=== PATIENT | male | born 1955 | race Caucasian/White ===

== ENCOUNTER 2020-09-30 06:15 | Outpatient (REF) | payer MEDICARE, SELFPAY ==
[2020-09-30 07:45] LABS: MANUAL DIFF FLAG NO
[2020-09-30 08:07] LABS: Basophils Percent Auto 0.3 % (0-2); Eosinophils Absolute Auto 0.1 X10*3/uL (0.0-0.4); Eosinophils Percent Auto 1.2 % (0-4); Hematocrit 43.5 % (42-52); Hemoglobin 14.5 g/dl (14.0-18.0); Imm Gran Abs Auto 0.02 X10*3/uL (0.00-0.03); Imm Gran Pct Auto 0.3 % (0.0-0.4); Lymphocytes Absolute Auto 1.4 X10*3/uL (1.2-4.9); Mean Corpuscular HGB Conc 33.3 g/dl (31.0-36.0); Mean Corpuscular Hemoglobin 32.2 pg (27.0-33.0); Mean Corpuscular Volume 96.5 fL (80-98); Mean Platelet Volume 10.1 fL (9.4-12.4); Monocytes Absolute Auto 0.6 X10*3/uL (0.1-1.2); Monocytes Percent Auto 8.1 % (2-11); Neutrophils Absolute Auto 5.4 X10*3/uL (2.0-8.3); Neutrophils Percent Auto 71.1 % (45-73); Platelet Count 149 X10*3/uL (160-400); Red Blood Count 4.51 X10*6/uL (4.60-5.80); Red Cell Distribution Width 12.3 % (11.0-16.0); White Blood Count 7.6 X10*3/uL (4.8-10.8)
[2020-09-30 08:13] LABS: Alanine Aminotransferase 28 U/L (0-40); Albumin Level 4.3 g/dL (3.5-5.0); Alkaline Phosphatase 67 U/L (39-117); Anion Gap 13 (12-20); Aspartate Amino Transferase 26 U/L (5-37); Bilirubin Total 1.3 mg/dL (0.0-1.0); Blood Urea Nitrogen 18 mg/dL (9-16); Calcium 8.7 mg/dL (8.4-10.2); Carbon Dioxide 26 mmol/L (22-29); Chloride 102 mmol/L (96-108); Cholesterol 239 mg/dL; Estimated Glomerular Filt Rate > 60; Glucose Fasting 99 mg/dL (60-99); HDL Cholesterol 56 mg/dL; LDL Cholesterol Calculated 143 mg/dl; Potassium 4.3 mmol/l (3.3-5.1); Sodium 137 mmol/L (135-145); Total Protein 6.9 g/dL (6.5-8.0); Triglycerides 204 mg/dL
[2020-09-30 08:13] LABS: Glucose Urine UA NEG (NEG); Leukocyte Esterase Urine NEG (NEG); Nitrite Urine NEG (NEG); PH 6.5 (5.0-8.0); Urine Blood NEG (NEG); Urine Ketones NEG (NEG); Urine Protein NEG (NEG-TRACE)
[2020-09-30 08:16] LABS: Appearance Urine CLEAR; Color Urine YELLOW
[2020-09-30 08:54] LABS: Prostate Specific Antigen Scr 0.32 ng/mL (<0.05-4.0)
== END 2020-09-30 06:16 | disposition home or self-care (01) ==
LOC: HO.LAB 06:15
PROVIDERS: Visit Provider Internal Medicine
DX: E78.00 Pure hypercholesterolemia, unspecified (principal); Z12.5 Encounter for screening for malignant neoplasm of prostate
CPT/HCPCS: 36415; 80053; 80061; 81003; 84153; 85025

== ENCOUNTER 2021-02-28 10:09 | Outpatient (REF) | payer MEDICARE, SELFPAY ==
--- NOTE | ~2021-02-28 | MR_ITS ---
EXAMINATION: MR ABDOMEN WITHOUT AND WITH CONTRAST CLINICAL INFORMATION: Follow-up pancreatic cyst COMPARISON: Previous MRIs most recent October [address] of the abdomen and pelvis January 2019 TECHNIQUE: MR abdomen was performed without and with use of 10 mL intravenous Gadavist gadolinium contrast. Postcontrast images are performed in multiphase dynamic sequences. Imaging was performed in 3 planes. 3-D MRCP sequences were also performed. FINDINGS: LUNG BASES: The visualized lung bases are unremarkable. LIVER, GALLBLADDER, AND BILIARY TREE: The liver is low in attenuation suggestive of fatty infiltration. The liver is normal in size and contour. There are multiple liver cysts. The largest cyst is an exophytic cyst to the lateral segment of the left lobe of the liver and measures 3 cm. The gallbladder is normal-appearing. There is no intra or extrahepatic biliary duct dilatation. PANCREAS: There are small cysts seen in the pancreas. The largest measures 6 x 9 mm in the uncinate process of the head of the pancreas for example image 36 postcontrast. This does not appear appreciably changed. There are several smaller cysts that are unchanged as well. The main pancreatic duct is normal. SPLEEN: Normal. ADRENAL GLANDS: Normal. KIDNEYS AND URETERS: There are several left renal cysts. The largest cyst measures 13 cm exophytic to the lower pole of the left kidney. GASTROINTESTINAL TRACT: There is diverticulosis of the colon. No bowel obstruction. No ascites or fluid collection. ABDOMINAL WALL: There is a small umbilical hernia containing fat. LYMPH NODES: No lymphadenopathy. VASCULAR: Unremarkable. OSSEOUS STRUCTURES: Marrow signal normal. There is degenerative disc disease. MR/MR abdomen wo/w con IMPRESSION: Stable liver, pancreas and left renal cysts. Fatty infiltration of the liver. Diverticulosis.
[2021-02-28 10:55] LABS: Blood Urea Nitrogen 15 mg/dL (9-16); Estimated Glomerular Filt Rate > 60
[2021-03-01 12:02] LABS: Carbohydrate Antigen 19-9 17 U/mL (<34)
== END 2021-02-28 10:10 | disposition home or self-care (01) ==
LOC: HO.MRI 10:09
PROVIDERS: Visit Provider Internal Medicine
DX: K86.2 Cyst of pancreas (principal)
CPT/HCPCS: 36415; 74183; 82565; 84520; 86301; A9585

== ENCOUNTER 2021-09-26 05:58 | Outpatient (REF) | payer MEDICARE, SELFPAY ==
[2021-09-26 06:16] LABS: MANUAL DIFF FLAG NO
[2021-09-26 07:16] LABS: Basophils Percent Auto 0.4 % (0-2); Eosinophils Absolute Auto 0.2 X10*3/uL (0.0-0.4); Eosinophils Percent Auto 2.8 % (0-4); Hematocrit 42.6 % (42.0-52.0); Hemoglobin 14.1 g/dl (14.0-18.0); Imm Gran Abs Auto 0.01 X10*3/uL (0.00-0.03); Imm Gran Pct Auto 0.2 % (0.0-0.4); Lymphocytes Absolute Auto 1.7 X10*3/uL (1.2-4.9); Lymphocytes Percent Auto 31.5 % (20-40); Mean Corpuscular HGB Conc 33.1 g/dl (31.0-36.0); Mean Corpuscular Hemoglobin 31.8 pg (27.0-33.0); Mean Corpuscular Volume 95.9 fL (80.0-98.0); Mean Platelet Volume 9.9 fL (9.4-12.4); Monocytes Absolute Auto 0.6 X10*3/uL (0.1-1.2); Monocytes Percent Auto 10.5 % (2-11); Neutrophils Percent Auto 54.6 % (45-73); Platelet Count 149 X10*3/uL (160-400); Red Blood Count 4.44 X10*6/uL (4.60-5.80); Red Cell Distribution Width 12.2 % (11.0-16.0); White Blood Count 5.4 X10*3/uL (4.8-10.8)
[2021-09-26 07:47] LABS: Alanine Aminotransferase 31 U/L (0-40); Albumin Level 4.1 g/dL (3.5-5.0); Alkaline Phosphatase 60 U/L (39-117); Anion Gap 9 (12-20); Aspartate Amino Transferase 25 U/L (5-37); Bilirubin Total 0.8 mg/dL (0.0-1.0); Blood Urea Nitrogen 19 mg/dL (9-16); Carbon Dioxide 29 mmol/L (22-29); Chloride 106 mmol/L (96-108); Estimated Glomerular Filt Rate > 60; Glucose Fasting 101 mg/dL (60-99); Potassium 4.7 mmol/L (3.3-5.1); Sodium 139 mmol/L (135-145); Total Protein 6.4 g/dL (6.5-8.0)
[2021-09-26 08:07] LABS: Prostate Specific Antigen 0.35 ng/mL (<0.05-4.0)
== END 2021-09-26 05:59 | disposition home or self-care (01) ==
LOC: HO.LAB 05:58
PROVIDERS: PCP Internal Medicine; Visit Provider Internal Medicine
DX: Z12.5 Encounter for screening for malignant neoplasm of prostate (principal); E78.00 Pure hypercholesterolemia, unspecified; J30.1 Allergic rhinitis due to pollen; Z80.42 Family history of malignant neoplasm of prostate
CPT/HCPCS: 36415; 80053; 84153; 85025

== ENCOUNTER 2022-03-05 08:26 | Outpatient (REF) | payer MEDICARE, SELFPAY ==
[2022-03-05 09:21] LABS: Blood Urea Nitrogen 17 mg/dL (9-16); Estimated Glomerular Filt Rate > 60
[2022-03-07 18:22] LABS: Carbohydrate Antigen 19-9 10 U/mL (<34)
== END 2022-03-05 08:27 | disposition home or self-care (01) ==
LOC: HO.LAB 08:26
PROVIDERS: PCP Internal Medicine; Visit Provider Internal Medicine
DX: K86.2 Cyst of pancreas (principal)
CPT/HCPCS: 36415; 82565; 84520; 86301

== ENCOUNTER 2022-03-12 08:08 | Outpatient (REF) | payer MEDICARE, SELFPAY ==
--- NOTE | ~2022-03-12 | MR_ITS ---
EXAMINATION: MR ABDOMEN WITHOUT AND WITH CONTRAST CLINICAL INFORMATION: Pancreatic cyst COMPARISON: 02/28/2021 TECHNIQUE: MR abdomen was performed without and with use of 10 mL intravenous Gadavist gadolinium contrast. Postcontrast images are performed in multiphase dynamic sequences. Imaging was performed in 3 planes. FINDINGS: LUNG BASES: The visualized lung bases are unremarkable. LIVER, GALLBLADDER, AND BILIARY TREE: The liver is normal in size, smooth in contour, with signal dropout on out of phase imaging. There is no biliary ductal dilatation. There are multiple T2 bright lesions in the liver. These do not show enhancement on postcontrast imaging, consistent with cysts.. The gallbladder is unremarkable with no evidence of gallbladder wall thickening, or obvious pericholecystic inflammatory changes. PANCREAS: Multiple pancreatic cysts are again noted. Additional smaller cysts at the pancreatic neck and body are also unchanged. No abnormal enhancement. No pancreatic ductal dilatation. SPLEEN: Normal. ADRENAL GLANDS: Normal. KIDNEYS AND URETERS: The kidneys are normal in size, shape, and enhance symmetrically. No hydronephrosis. No perinephric stranding. Redemonstration of a prominent exophytic cyst at the lower pole of the left kidney measuring 13 cm. This appears simple and is unchanged. Additional left simple renal cysts are also unchanged. No follow-up imaging recommended. GASTROINTESTINAL TRACT: No bowel obstruction. No ascites or fluid collection. ABDOMINAL WALL: No significant hernia is appreciated. LYMPH NODES: No lymphadenopathy. VASCULAR: Unremarkable. OSSEOUS STRUCTURES: Marrow signal normal. MR/MR abdomen wo/w con IMPRESSION: No significant change in appearance of multiple small pancreatic cysts. Cysts of the liver and left kidney are also without change. Hepatic steatosis.
== END 2022-03-12 08:09 | disposition home or self-care (01) ==
LOC: HO.MRI 08:08
PROVIDERS: Visit Provider Internal Medicine
DX: K86.2 Cyst of pancreas (principal)
CPT/HCPCS: 74183; A9585

== ENCOUNTER 2022-04-06 07:08 | Day surgery (SDC) | payer MEDICARE, SELFPAY ==
[2022-03-31 15:27] VITALS: BMI 29.7
--- NOTE | 2022-04-03 12:37 | P.CONAN_ITS ---
Documented by User: Génesis Mandel NP 04/03/22 12:38 HPI - Anesthesia Eval Consult details Narrative: 66yo M for Colonoscopy [facility] Past Medical History Medical History Diverticulitis Surgical History Surgical History H/O colonoscopy Social History Social History (Updated 03/31/22 @ 15:25 by Faith Alexander RN) Patient Tobacco Use Status: Never used Tobacco Tobacco use type: Cigarette Use of substances other than those prescribed or required for medical reasons: No Are you DNR?: No Advance Directives: No Advance Directives Information Provided: Yes Meds Allergies Allergy/AdvReac Type Severity Reaction Status Date / Time No Known Allergies Allergy Verified 04/06/22 08:09 Home Medications Medication Instructions Recorded Confirmed Last Taken Type fluticasone propionate 50 1 spray INTRANASAL DAILY 03/31/22 03/31/22 Unknown History mcg/actuation nasal spray,suspension (Flonase Allergy Relief) Exam Exam Date and Time: April 03, 2022 1237 Height,Weight and Vital Signs: Height 6 ft Weight 99.337 kg Assessment and Plan Assessment Anesthesia Assessment: Chart Reviewed Documented by User: Marc Mon MD 04/06/22 09:38 [facility] Past Medical History Medical History Diverticulitis Functional capacity: independent ambulation Family History Family history of problems with anesthesia: No Surgical History Surgical History H/O colonoscopy History of Problems with Anesthesia: No Social History Social History (Updated 03/31/22 @ 15:25 by Faith Alexander RN) Patient Tobacco Use Status: Never used Tobacco Tobacco use type: Cigarette Use of substances other than those prescribed or required for medical reasons: No Are you DNR?: No Advance Directives: No Advance Directives Information Provided: Yes Meds Allergies Allergy/AdvReac Type Severity Reaction Status Date / Time No Known Allergies Allergy Verified 04/06/22 08:09 Home Medications Medication Instructions Recorded Confirmed Last Taken Type fluticasone propionate 50 1 spray INTRANASAL DAILY 03/31/22 03/31/22 Unknown History mcg/actuation nasal spray,suspension (Flonase Allergy Relief) Exam Airway Mallampati Class: II TM Dist: >3cm Neck ROM: Full Loose/Missing/Broken Teeth: Yes (Chipped teeth ) Heart: S1, S2 Lungs: b/l breath sounds Assessment and Plan Assessment Anesthesia Assessment: Anesthesia Plan Discussed Final Anesthetic Review Family History of Problems with Anesthesia: No History of Problems with Anesthesia: No NPO: Yes ASA Class: II Final Preanesthetic Review: Meds/Allgs Chart Reviewed, Consent Obtained/Reviewed and Anes Risks/Benef Reviewed Patient Risk: Intermediate Procedure Risk: Intermediate Anesthetic Plan Anesthetic Plan: MAC: Disposition: Standard PACU
[2022-04-06 07:41] VITALS: BP 166/105; PULSE 86; RESP 15; TEMP 36.2; O2SAT 97
[2022-04-06] MEDS: Lactated Ringers 1,000 ML 100 ML IVCONT (07:57)
[2022-04-06 09:26] VITALS: BP 115/73; PULSE 74; RESP 16; TEMP 36.1; O2SAT 97
--- NOTE | 2022-04-06 09:27 | P.BOP_ITS ---
Brief Operative Note Date of Service: 04/06/22 Pre-op diagnosis: Screening Post-op diagnosis: other (Diverticulosis) Procedure: Colonoscopy to the cecum and TI Surgeon: Derick Prakash Anesthesia: MAC Was an Quality Control Assistant used for this Procedure?: No Estimated blood loss (mL): 0 Pathology: none sent Condition: stable Disposition: PACU
[2022-04-06 09:41] VITALS: BP 120/76; PULSE 70; RESP 16; TEMP 36.1; O2SAT 96
--- NOTE | 2022-04-06 10:19 | OP_ITS ---
SURGEON: Derick Prakash MD INDICATIONS: The patient presents for evaluation of colorectal cancer screening and personal history of tubular adenoma of the colon. Full consent was obtained from him for this, including risks of bleeding and perforation. PREOPERATIVE DIAGNOSIS: POSTOPERATIVE DIAGNOSIS: PROCEDURE PERFORMED: Colonoscopy to cecum and terminal ileum. ESTIMATED BLOOD LOSS: COMPLICATIONS: ANESTHESIA: Monitored anesthesia care. ASSISTANTS: SPECIMENS: PREOPERATIVE DIAGNOSES: Colorectal cancer screening and personal history of tubular adenoma of the colon. POSTOPERATIVE DIAGNOSES: Colorectal cancer screening and personal history of tubular adenoma of the colon, diverticulosis and internal hemorrhoids. DESCRIPTION OF PROCEDURE: The patient was placed in the left lateral decubitus position. The digital rectal exam revealed no abnormalities. The Olympus video pediatric colonoscope was entered into the rectum and advanced easily to the cecum. Once in the cecum, I did identify normal-appearing cecal pouch with appendiceal orifice and a normal-appearing ileocecal valve. The terminal ileum was cannulated and appeared normal. The scope was withdrawn back into the colon. The entire cecum and ileocecal valve appeared normal. The scope was then slowly withdrawn assessing all mucosal surfaces carefully. Preparation was excellent. I did not visualize any sign of polyps, colitis, nor angiodysplasia. There was a mild amount of sigmoid diverticulosis. In the rectum, scope was retroflexed visualizing small internal hemorrhoids, but no other pathology. The rectal mucosa appeared normal. The scope was straightened and withdrawn from the patient. He tolerated the procedure well and was returned to the recovery area in stable condition. IMPRESSION: 1. Mild sigmoid diverticulosis. 2. Small internal hemorrhoids. PLAN: I would recommend a repeat colonoscopy in 5 years. He will see me in 2 years in the office for a followup MRI of his pancreatic cyst. His recent MRI was stable in that regard. MD UMA Bautista/IVORY / [id number] LONNIE
== END 2022-04-06 10:29 | disposition home or self-care (01) ==
PROVIDERS: PCP Internal Medicine; Visit Provider Internal Medicine
PROC: 0DJD8ZZ Inspection of Lower Intestinal Tract, Via Natural or Artificial Opening Endoscopic (ICD-10-PCS; CPT 45378; principal; 2022-04-06 08:20)
DX: Z12.11 Encounter for screening for malignant neoplasm of colon (principal); Z86.010 Personal history of colon polyps; K57.30 Diverticulosis of large intestine without perforation or abscess without bleeding; K64.8 Other hemorrhoids; K86.2 Cyst of pancreas
CPT/HCPCS: G0105

== ENCOUNTER 2022-10-05 06:01 | Outpatient (REF) | payer MEDICARE, SELFPAY ==
[2022-10-05 06:06] LABS: MANUAL DIFF FLAG NO
[2022-10-05 07:45] LABS: Basophils Percent Auto 0.5 % (0-2); Eosinophils Absolute Auto 0.1 X10*3/uL (0.0-0.4); Eosinophils Percent Auto 1.9 % (0-4); Hematocrit 42.4 % (42.0-52.0); Hemoglobin 14.1 g/dl (14.0-18.0); Imm Gran Abs Auto 0.01 X10*3/uL (0.00-0.03); Imm Gran Pct Auto 0.2 % (0.0-0.4); Lymphocytes Absolute Auto 1.7 X10*3/uL (1.2-4.9); Lymphocytes Percent Auto 29.6 % (20-40); Mean Corpuscular HGB Conc 33.3 g/dl (31.0-36.0); Mean Corpuscular Hemoglobin 31.4 pg (27.0-33.0); Mean Corpuscular Volume 94.4 fL (80.0-98.0); Mean Platelet Volume 9.7 fL (9.4-12.4); Monocytes Absolute Auto 0.6 X10*3/uL (0.1-1.2); Monocytes Percent Auto 9.6 % (2-11); Neutrophils Absolute Auto 3.4 x10*3/uL (2.0-8.3); Neutrophils Percent Auto 58.2 % (45-73); Platelet Count 142 X10*3/uL (160-400); Red Blood Count 4.49 X10*6/uL (4.60-5.80); Red Cell Distribution Width 12.6 % (11.0-16.0); White Blood Count 5.8 X10*3/uL (4.8-10.8)
[2022-10-05 07:59] LABS: Alanine Aminotransferase 26 U/L (0-40); Albumin Level 3.9 g/dL (3.5-5.0); Alkaline Phosphatase 63 U/L (39-117); Anion Gap 14 (12-20); Aspartate Amino Transferase 21 U/L (5-37); Bilirubin Total 0.7 mg/dL (0.0-1.0); Blood Urea Nitrogen 17 mg/dL (9-16); Calcium 8.7 mg/dL (8.4-10.2); Carbon Dioxide 26 mmol/L (22-29); Chloride 107 mmol/L (96-108); Cholesterol 253 mg/dL; Estimated Glomerular Filt Rate > 60; Glucose Random 99 mg/dL (60-115); HDL Cholesterol 48 mg/dL; LDL Cholesterol Calculated 154 mg/dl; Potassium 4.8 mmol/L (3.3-5.1); Sodium 142 mmol/L (135-145); Total Protein 6.4 g/dL (6.5-8.0); Triglycerides 255 mg/dL
[2022-10-05 08:21] LABS: Prostate Specific Antigen 0.41 ng/mL (<0.05-4.0)
== END 2022-10-05 06:02 | disposition home or self-care (01) ==
LOC: HO.LAB 06:01
PROVIDERS: PCP Internal Medicine; Visit Provider Internal Medicine
DX: Z00.00 Encounter for general adult medical examination without abnormal findings (principal); Z12.5 Encounter for screening for malignant neoplasm of prostate; E78.00 Pure hypercholesterolemia, unspecified
CPT/HCPCS: 36415; 80053; 80061; 84153; 85025

== ENCOUNTER 2023-01-29 06:06 | Outpatient (REF) | payer MEDICARE, SELFPAY ==
[2023-01-29 08:11] LABS: Cholesterol 199 mg/dL; HDL Cholesterol 53 mg/dL; LDL Cholesterol Calculated 113 mg/dl; Triglycerides 167 mg/dL
== END 2023-01-29 06:07 | disposition home or self-care (01) ==
LOC: HO.LAB 06:06
PROVIDERS: PCP Internal Medicine; Visit Provider Internal Medicine
DX: E78.00 Pure hypercholesterolemia, unspecified (principal)
CPT/HCPCS: 36415; 80061

== ENCOUNTER 2023-09-24 06:05 | Outpatient (REF) | payer MEDICARE, SELFPAY ==
[2023-09-24 06:19] LABS: MANUAL DIFF FLAG NO
[2023-09-24 07:00] LABS: Basophils Percent Auto 0.5 % (0-2); Eosinophils Absolute Auto 0.1 X10*3/uL (0.0-0.4); Eosinophils Percent Auto 1.9 % (0-4); Hematocrit 43.7 % (42.0-52.0); Hemoglobin 14.6 g/dl (14.0-18.0); Imm Gran Abs Auto 0.03 X10*3/uL (0.00-0.03); Imm Gran Pct Auto 0.5 % (0.0-0.4); Lymphocytes Absolute Auto 1.6 X10*3/uL (1.2-4.9); Lymphocytes Percent Auto 26.7 % (20-40); Mean Corpuscular HGB Conc 33.4 g/dl (31.0-36.0); Mean Corpuscular Hemoglobin 31.8 pg (27.0-33.0); Mean Corpuscular Volume 95.2 fL (80.0-98.0); Mean Platelet Volume 9.8 fL (9.4-12.4); Monocytes Absolute Auto 0.6 X10*3/uL (0.1-1.2); Monocytes Percent Auto 10.2 % (2-11); Neutrophils Absolute Auto 3.5 x10*3/uL (2.0-8.3); Neutrophils Percent Auto 60.2 % (45-73); Platelet Count 148 X10*3/uL (160-400); Red Blood Count 4.59 X10*6/uL (4.60-5.80); Red Cell Distribution Width 12.3 % (11.0-16.0); White Blood Count 5.8 X10*3/uL (4.8-10.8)
[2023-09-24 07:36] LABS: Alanine Aminotransferase 22 U/L (0-40); Albumin Level 4.1 g/dL (3.5-5.0); Alkaline Phosphatase 61 U/L (39-117); Anion Gap 11 (12-20); Aspartate Amino Transferase 21 U/L (5-37); Bilirubin Total 0.9 mg/dL (0.0-1.0); Blood Urea Nitrogen 16 mg/dL (9-16); Calcium 9.3 mg/dL (8.4-10.2); Carbon Dioxide 28 mmol/L (22-29); Chloride 109 mmol/L (96-108); Cholesterol 148 mg/dL (<200); Estimated Glomerular Filt Rate > 60; Glucose Fasting 103 mg/dL (60-99); HDL Cholesterol 49 mg/dL (>40); LDL Cholesterol Calculated 83 mg/dL (<100); Potassium 5.6 mmol/L (3.3-5.1); Sodium 142 mmol/L (135-145); Total Protein 6.8 g/dL (6.5-8.0); Triglycerides 83 mg/dL (<150)
[2023-09-24 07:50] LABS: Prostate Specific Antigen 0.35 ng/mL (<0.05-4.0)
[2023-09-24 10:47] LABS: Creatinine Urine 151.84 mg/dL; Microalbum/Creatinine Ratio Ur 9.8 ug/mg cr (<30)
== END 2023-09-24 06:06 | disposition home or self-care (01) ==
LOC: HO.LAB 06:05
PROVIDERS: PCP Internal Medicine; Visit Provider Internal Medicine
DX: Z12.5 Encounter for screening for malignant neoplasm of prostate (principal); E78.00 Pure hypercholesterolemia, unspecified; R35.1 Nocturia
CPT/HCPCS: 36415; 80053; 80061; 82043; 82570; 84153; 85025

== ENCOUNTER 2024-05-23 10:29 | Outpatient (AMB) | payer MEDICARE, SELFPAY ==
--- NOTE | 2024-05-23 10:34 | MHC.OFFVIS ---
Vital Signs 05/23/24 10:39 Height 6 ft Weight 216 lb BMI 29.3 Intake Visit Reasons: suspicious cyst on back, right side Intake Note: This patient presents for an assessment for inflamed cyst on the back, right. Patient c/o; reports on one round of cephalexin 500 mg, inflamed cyst right back. Freelance Patternmaker Required: No Accompanied by: Self / Same As Patient Allergies No Known Allergies Allergy (Verified 05/23/24 10:42) Medication List - Last Reconciled 05/23/24 by Jamal Breumen MD cephalexin 500 mg PO QID fluticasone propionate 50 mcg/actuation (Flonase Allergy Relief) 1 spray intranasal DAILY ibuprofen 800 mg PO Q8H PRN 30 days HPI Comments Details: 68-year-old male presenting with complaints of painful cyst of the right back. Over the past week he noted increasing the size and pain associated with the cyst. He now has large area of redness surrounding the cyst. He was evaluated by Dr. Harmon and started on antibiotics. He presents today for possible incision and drainage. He denies any previous surgery at this location. He denies fever or chills. [facility] Medical History Diverticulitis Surgical History H/O colonoscopy Social History Patient Tobacco Use Status: Never used Tobacco Tobacco use type: Cigarette Review of Systems Const All systems reviewed & are unremarkable except as noted in HPI and below Physical Exam Vital Signs: BMI result Body Mass Index 29.3 Const General: cooperative and no acute distress Nutritional Appearance: well nourished Orientation/consciousness: patient oriented x3 Limitations: no limitations HEENT Head: Yes normocephalic and Yes atraumatic Ears: hearing grossly normal bilaterally Resp Effort & Inspection: normal respiratory effort, no audible wheezes, no cough and no respiratory distress Cardio Jugular venous distension: no JVD GI Inspection: Yes normal to inspection Back/Spine/Pelvis Other: 5 cm area of inflammation fluctuance involving the right upper back, tender to palpation. A small amount of purulence discharge is noted my central punctum. Findings are suggestive of an infected sebaceous cyst. Back/spine/pelvis image: 1. Site of infection right back Skin Other: Warm, dry, no rash Neuro General: patient oriented x3 Extrem General: Yes no clubbing, cyanosis or edema Office Procedures I&D Drain Details: Preoperative diagnosis: Infected sebaceous cyst right back Postoperative diagnosis: Same Procedure: Incision and drainage abscess Surgeon: Jamal Berumen MD Hearse Driver: Anesthesia: Lidocaine 1% with epinephrine Indications for procedure: 68-year-old male patient with an abscess of the posterior right shoulder Operative findings: Large abscess posterior right shoulder Specimen: Wound culture Estimated blood loss: Less than 2 mL Complications: None Procedure details: Patient was placed in a left lateral decubitus position. The site of surgery was confirmed by the patient in the posterior right shoulder. After assuring informed consent the skin was prepped with Betadine and draped in a sterile fashion. Local anesthesia was then infiltrated over the abscess. An incision was then made with an 11 blade and carried out through subcutaneous tissue into the abscess cavity. A large purulence collection was drained. Wound cultures were obtained as well. Wounds were then packed with half-inch Nu Gauze. Dry sterile dressings were then applied. The patient tolerated the procedure well and was discharged to home in stable condition. [id number] of Skin Abscess, simple All charges added?: Procedure code (CPT) selection complete Assessment & Plan Assessment & Plan (1) Epidermal inclusion cyst: Code(s): L72.0 - Epidermal cyst Category: Medical (2) Abscess: Code(s): L02.91 - Cutaneous abscess, unspecified Category: Medical Plan 68-year-old male patient presenting with an infected sebaceous cyst of the back. He underwent incision and drainage today with a large purulence collection. He was instructed on local wound care. He should continue the antibiotics as prescribed. He will follow-up in 1 week for wound check. Orders: Orders Routine Culture w Gram Stain Today L02.91 - Cutaneous abscess, unspecified, L72.0 - Epidermal cyst Coding Level of Care Code New Pt Level 4 (91596) Diagnoses Epidermal inclusion cyst L72.0 Abscess L02.91 CPT Codes I&D Drain - Drain 1: [id number]-Dmqgsexh of Skin Abscess, simple ([id number])
[2024-05-23 10:39] VITALS: BMI 29.3
== END 2024-05-23 11:00 | disposition home or self-care (01) ==
PROVIDERS: PCP Internal Medicine; Referring Provider Internal Medicine; Visit Provider Surgery
DX: L72.0 Epidermal cyst (principal); L02.212 Cutaneous abscess of back [any part, except buttock and flank]
CPT/HCPCS: 10060; 99204

== ENCOUNTER 2024-05-23 10:29 | Outpatient (REF) | payer MEDICARE, SELFPAY | END 2024-05-23 10:30 | disposition home or self-care (01) | LOC: HO.LNP 10:29 | PROVIDERS: PCP Internal Medicine; Referring Provider Internal Medicine; Visit Provider Surgery | DX: L72.0 Epidermal cyst (principal); L02.91 Cutaneous abscess, unspecified | CPT/HCPCS: 10060; 87070; 87205; 99202 ==

== ENCOUNTER 2024-05-30 10:14 | Outpatient (AMB) | payer MEDICARE, SELFPAY ==
--- NOTE | 2024-05-30 10:16 | A.OFFVIS_ITS ---
Vital Signs 3 05/30/24 10:21 Height 6 ft Weight 217 lb BMI 29.4 BP 174/95 H Blood Pressure Location Lt brachial Position Sitting Pulse 81 Intake Visit Reasons: s/p cyst on back right side- off proc Intake Note: Patient is seen in office for post op assessment post excision of back cyst. Pt c/o: some minimal redness and discharge in the area Development And Housing Director Required: No Accompanied by: Self / Same As Patient Allergies No Known Allergies Allergy (Verified 05/30/24 10:22) HPI Comments Details: 68-year-old male patient returning 1 week following incision and drainage of an abscess of the right back. He tolerated the procedure well and still has some small amount of discharge. He denies any fever or chills. PFSH Medical History Diverticulitis Surgical History H/O colonoscopy Social History Patient Tobacco Use Status: Never used Tobacco Tobacco use type: Cigarette Physical Exam Vital Signs: Last Vital Signs Pulse 81 05/30/24 10:21 BP 174/95 H 05/30/24 10:21 BMI result Body Mass Index 29.4 Const General: comfortable Nutritional Appearance: well nourished Orientation/consciousness: patient oriented x3 Back/Spine/Pelvis Other: Incision and drainage site is open with no residual abscess noted. Dry sterile dressings applied. Back/spine/pelvis image: 2 1. Incision and drainage site Neuro General: patient oriented x3 Assessment & Plan Assessment & Plan (1) Epidermal inclusion cyst: Code(s): L72.0 - Epidermal cyst Category: Medical (2) Abscess: Code(s): L02.91 - Cutaneous abscess, unspecified Category: Medical Plan Patient returns 1 week following incision and drainage of an abscess of the right. He tolerated the procedure well the wounds are slowly healing. He should continue to apply dry sterile dressing to the wound. He should return should a palpable cyst redevelop for possible excision. Coding Level of Care Code Global (93716) Diagnoses Epidermal inclusion cyst L72.0 Abscess L02.91
[2024-05-30 10:21] VITALS: BP 174/95; PULSE 81; BMI 29.4
== END 2024-05-30 10:24 | disposition home or self-care (01) ==
PROVIDERS: PCP Internal Medicine; Visit Provider Surgery
DX: L72.0 Epidermal cyst (principal); L02.91 Cutaneous abscess, unspecified
CPT/HCPCS: 99024

== ENCOUNTER → 2024-05-30 10:14 | Outpatient (BNVA) | payer MEDICARE, SELFPAY | PROVIDERS: PCP Internal Medicine; Visit Provider Surgery | DX: Z48.817 Encounter for surgical aftercare following surgery on the skin and subcutaneous tissue (principal); Z87.2 Personal history of diseases of the skin and subcutaneous tissue | CPT/HCPCS: 99212 ==

== ENCOUNTER 2024-09-26 05:59 | Outpatient (REF) | payer MEDICARE, SELFPAY ==
[2024-09-26 06:09] LABS: MANUAL DIFF FLAG NO
[2024-09-26 07:07] LABS: Basophils Percent Auto 0.5 % (0-2); Eosinophils Absolute Auto 0.1 X10*3/uL (0.0-0.4); Eosinophils Percent Auto 1.8 % (0-4); Hematocrit 42.5 % (42.0-52.0); Hemoglobin 14.3 g/dl (14.0-18.0); Imm Gran Abs Auto 0.01 X10*3/uL (0.00-0.03); Imm Gran Pct Auto 0.2 % (0.0-0.4); Lymphocytes Percent Auto 23.1 % (20-40); Mean Corpuscular HGB Conc 33.6 g/dl (31.0-36.0); Mean Corpuscular Hemoglobin 32.1 pg (27.0-33.0); Mean Corpuscular Volume 95.3 fL (80.0-98.0); Mean Platelet Volume 9.8 fL (9.4-12.4); Monocytes Absolute Auto 0.5 X10*3/uL (0.1-1.2); Monocytes Percent Auto 10.2 % (2-11); Neutrophils Absolute Auto 2.8 x10*3/uL (2.0-8.3); Neutrophils Percent Auto 64.2 % (45-73); Platelet Count 141 X10*3/uL (160-400); Red Blood Count 4.46 X10*6/uL (4.60-5.80); Red Cell Distribution Width 12.3 % (11.0-16.0); White Blood Count 4.4 X10*3/uL (4.8-10.8)
[2024-09-26 07:35] LABS: Alkaline Phosphatase 65 U/L (39-117); Anion Gap 10 (12-20); Aspartate Amino Transferase 27 U/L (5-37); Bilirubin Total 0.9 mg/dL (0.0-1.0); Blood Urea Nitrogen 22 mg/dL (9-16); Calcium 9.2 mg/dL (8.4-10.2); Carbon Dioxide 28 mmol/L (22-29); Chloride 107 mmol/L (96-108); Cholesterol 230 mg/dL (<200); Estimated Glomerular Filt Rate > 60; Glucose Fasting 105 mg/dL (60-99); HDL Cholesterol 51 mg/dL (>40); LDL Cholesterol Calculated 139 mg/dL (<100); Potassium 4.5 mmol/L (3.3-5.1); Sodium 140 mmol/L (135-145); Total Protein 6.8 g/dL (6.5-8.0); Triglycerides 202 mg/dL (<150)
[2024-09-26 07:41] LABS: Prostate Specific Antigen 0.37 ng/mL (<0.05-4.0)
[2024-09-26 08:01] LABS: Alanine Aminotransferase 25 U/L (0-40)
== END 2024-09-26 06:00 | disposition home or self-care (01) ==
LOC: HO.LAB 05:59
PROVIDERS: PCP Internal Medicine; Visit Provider Internal Medicine
DX: E78.00 Pure hypercholesterolemia, unspecified (principal); Z12.5 Encounter for screening for malignant neoplasm of prostate; J30.9 Allergic rhinitis, unspecified
CPT/HCPCS: 36415; 80053; 80061; 84153; 85025

== ENCOUNTER 2024-11-24 06:00 | Outpatient (REF) | payer MEDICARE, SELFPAY ==
--- OUTSIDE RECORDS SUMMARY | 2024-11-24 06:03 | XMS_ITS | Patient Health Record ---
Author Organization [facility] Address [address] [place] [address] Care Team Providers Care Affirmative Action Officer Name Role Phone Ritesh Harmon MD Primary Care Provider Derick Leblanc Unavailable [phone] ALLERGIES No Known Allergies REASON FOR REFERRAL No Information MEDICATIONS Medication SIG (Take, Route, Frequency, Duration) Notes Start Date End Date Status Flonase Allergy Relief 50 MCG/ACT 1 spray in each nostril Nasally Once a day for 30 day(s) Active IMMUNIZATIONS Vaccine Route Administration Date Status Comme nts Influenza Unknown 09/22/2018 Administered Influenza Unknown 07/16/2019 Administered Influenza Unknown 09/17/2020 Administered Influenza Unknown 07/16/2021 Administered SOCIAL HISTORY Tobacco Use: Social History Observation Description Date Details (start date - stop date) Former Smoker NA - NA Sex Assigned At : Social History Observation Description Sex Assigned At Unknown Tobacco Use/Smoking Question Answer Notes Patient is a former smoker When did you stop smoking? 50 PROBLEMS Problem Type ICD Code Onset Dates Problem Status W/U Status Risk SNOMED Code Notes Problem Encounter for screening for malignant neoplasm of colon (Z12.11) Active confirmed 555071254 Problem Encounter for screening for malignant neoplasm of rectum (Z12.12) Active confirmed Screening fo r malignant neoplasm of rectum (358694687) Problem Preprocedural examination (Z01.818) Active confirmed 21604879 Problem Diverticulitis of large intestine without perforation or abscess without bleeding (K57.32) Active confirmed 5650221 Problem Pancreatic lesion (K86.9) Active confirmed 1079269 Problem Pancreatic cyst (K86.2) Active confirmed 71576508 Problem History of adenomatous polyp of colon (Z86.010) Active confirmed History of adenomatous polyp of colon (895615493) Problem History of colon polyps (Z86.010) Active confirmed History of polyp of colon (630944345) Problem Diverticulosis of colon (K57.30) Active confirmed Diverticulosi s of colon (637098278) PLAN OF TREATMENT Pending Test Test Name Order Date BUN 07/26/2019 BUN 02/15/2019 BUN 03/03/2022 BUN 10/24/2020 CREATININE 07/26/2019 CREATININE 02/15/2019 CREATININE 03/03/2022 CREATININE 10/24/2020 CA 19-9 10/24/2020 CA 19-9 02/15/2019 CA 19-9 03/03/2022 MRI ABD W&WO CONTRAST 02/15/2019 MRI ABD W&WO CONTRAST 03/03/2022 MRI ABD W&WO CONTRAST 10/24/2020 MRI ABD W&WO CONTRAST 07/26/2019 Future Test Test Name Order Date COLONOSCOPY 11/20/2016 COLONOSCOPY 03/03/2022 Insurance Providers Payer Name Payer Address Payer Phone Subscriber Number Group Number Insured Name Patient Relationship to Insured Coverage Start Date Coverage End Date MEDICARE OF [place] [address] [place] [address] [phone] [id number] KATIE CAMERON Self - patient is the insured [employer] CLAIM[employer] [address] [place] [address] [id number] KATIE CAMERON Self - patient is the insured MEDICAL (GENERAL) HISTORY Medical History History ICD Code Negative screening colonoscopy in 2005 Childhood asthma Denies [place],DM,CVA,Lung disease,renal dise ase Colonoscopy 04/2017 with a small tubular adenoma removed Pancreatic cyst seen on CT a nd MRI in 02/2019--a MRI in October 2019 was unchanged. Normal CA 19-9 level in 02/2019. MRI of the pancreas and abdomen was unchanged in February of 2021. Normal CA 19-9 level in February of 2021 Liver and renal cysts seen on his imagin g studies Diverticulitis in January of 2019 treated with outpatient antibiotics Surgical History Surgery Date(Month/Year)
--- OUTSIDE RECORDS SUMMARY | 2024-11-24 06:03 | XMS_ITS | Patient Health Record ---
[facility] Address [address] [place] [address] Care Team Providers Care Candy Waffle Assembler Name Role Phone Ritesh Harmon MD Primary Care Provider Lenard Caicedo Unavailable [phone] Allergies No Known Allergies Reason For Referral No Information Medications Medication SIG (Take, Route, Fr equency, Duration) Notes Start Date End Date Status Nightsplint . . . AFO - L1930 for . PRN Active Physical Therapy . . . 2-3x/week for 3-4 weeks Active Immunizations Vaccine Route Administration Date Status Comme nts COVID-19 Moderna Vaccine Unknown 09/08/2021 Administered 1st 01/17/2021 2nd 02/17/2021 Influenza Unknown 08/26/2021 Administered Social History Tobacco Use: Social History Observation Description Date Details (start date - stop date) Never Smoker NA - NA Tobacco Use/Smoking Question Answer Notes Are you a: nonsmoker Alcohol Screen Question Answer Notes Did you have a drink containing alcohol in the p ast year? Yes Points 0 Interpretation Negative Tobacco use other than smoking: Question Answer Notes Are you an other tobacco user? No Problems Problem Type SNOMED Code ICD Code Onset Dates Problem Status W/U Status Risk Notes Problem Plantar fascial fibromatosis (05403688) Plantar fascial fibromatosis (M72.2) Active confirmed Plan Of Treatment Pending Test Test Name Order Date ,[id number] TENDON SHEATH/LIGAMENT 1 11/26/202098335,[id number] TENDON SHEATH/LIGAMENT 1 12/25/202015791,[id number] TENDON SHEATH/LIGAMENT 0 02/03/202296230,[id number] TENDON SHEATH/LIGAMENT 0 01/08/2022 Insurance Providers Payer Name Payer Address Payer Phone Subscriber Number Group Number Insured Name Patient Relationship to Insured Coverage Start Date Coverage End Date Medicare National [employer]t Sv[employer] [address] [place] [address] [id number] Michael Valentin Self - patient is the insured [employer] [address] [place] [address] [id number] Michael Valentin Self - patient is the insured Medical (General) History Medical History History ICD Code Diverticulosis Surgical History Surgery Date(Month/Year)
[2024-11-24 07:53] LABS: Cholesterol 149 mg/dL (<200); HDL Cholesterol 50 mg/dL (>40); LDL Cholesterol Calculated 68 mg/dL (<100); Triglycerides 155 mg/dL (<150)
== END 2024-11-24 06:01 | disposition home or self-care (01) ==
LOC: HO.LAB 06:00
PROVIDERS: PCP Internal Medicine; Visit Provider Internal Medicine
DX: E78.00 Pure hypercholesterolemia, unspecified (principal)
CPT/HCPCS: 36415; 80061

== ENCOUNTER 2025-05-02 08:28 | Outpatient (REF) | payer MEDICARE, SELFPAY ==
--- OUTSIDE RECORDS SUMMARY | 2025-04-12 08:01 | XMS_ITS ---
Author Organization [facility] Address [address] [place] [address] Care Team Providers Care Fuel Attendant Name Role Phone Ritesh Harmon MD Primary Care Provider Derick Leblanc Unavailable [phone] REASON FOR VISIT mri Problems Problem Type SNOMED Code ICD Code Onset Dates Problem Status W/U Status Risk Notes Problem Neoplasm of digestive system (276929267) IPMN (intraductal papillary mucinous neoplasm) (D49.0) Active confirmed Encounters Encounter Location Date Provider Diagnosis [facility] [address] [place] [address] 04/12/2025 Derick Prakash Pancreatic cyst K86. 2 and IPMN (intraductal papillary mucinous neoplasm) D49.0 Assessments Encounter Date Diagnosis (ICD Code) Assessment Notes Treatment Notes Treatment Clinical Notes Section Notes 04/12/2025 Pancreatic cyst (ICD-10 - K86.2) 04/12/2025 IPMN (intraductal papillary mucinous neoplasm) (ICD-10 - D49.0) Plan Of Treatment Pending Test Test Name Order Date BUN 04/12/2025 CA 19-9 04/12/2025 MRI ABD W&WO CONTRAST 04/12/2025 Creatinine 04/12/2025 Next Appt Details Provider Name:Derick Prakash , 09/04/2025 09:30:00 AM, [address], [address], [place], [address], Progress Notes * KATIE CAMERON ADOB: [birth year] (69 yo M)Acc No.[id number]:04/12/2025 Patient: Flynn KATIE ESTRELLA :1955 A ge:69 Y S ex:Male Address:[place] [address] Subjective: * Chief Complaints: * M ri * Medical History: * Surgical History: * Hospitalization/Major Diagno stic Procedure: * Medications: Objective: * Vitals: * Physical Examination: Assessment: * Assessment: 1. P ancreatic cyst - K86.2 (Primary) 2 . I PMN (intraductal papillary mucinous neoplasm) - D49.0 Plan: * Treatment: 2.?IPMN (intraductal papillary mucinous neoplasm)?LAB: BUN ?LAB: CA 19-9 ?LAB: Creatinine ?Imaging: MRI ABD W&WO CONTRAST* * Procedure Codes: * true * Date: Generated for Hansa gillette/Abraham/Lesleyitting on: 0 05/02/2025 08:52 AM EDT
--- NOTE | ~2025-05-02 | MR_ITS ---
EXAMINATION: MR ABDOMEN WITHOUT AND WITH CONTRAST CLINICAL INFORMATION: Pancreatic cyst. COMPARISON: MRI dated March 12, 2022. TECHNIQUE: MR abdomen was performed without and with use of 10 mL intravenous Gadavist gadolinium contrast. Postcontrast images are performed in multiphase dynamic sequences. Imaging was performed in 3 planes. No reported immediate complications. FINDINGS: Limited by patient's motion artifact. LUNG BASES: No enhancing mass. LIVER, GALLBLADDER, AND BILIARY TREE: Liver measures 16 cm. There are multifocal, well-defined, lobulated, round and thin septated nonenhancing fluid signal characteristic lesions throughout the erythema, the largest in the left hepatic dome measures 4 cm. Main portal veins, hepatic veins and intrahepatic portion of the IVC are patent. No intrahepatic biliary ductal dilatation. Gallbladder is fluid-filled without pericholecystic fluid collection or gallbladder wall thickening. Common bile duct measures 5 mm. No intraluminal signal abnormality. PANCREAS: There are multifocal, well-defined, round, ovoid shaped nonenhancing fluid signal characteristic lesions, the largest in the uncinate process measures 1 cm. No main pancreatic ductal dilatation. No peripancreatic fluid collection. SPLEEN: 11 cm. ADRENAL GLANDS: No nodular lesions. KIDNEYS AND URETERS: There are multifocal, different sizes, thin septated nonenhancing fluid signal characteristic lesions in the left kidney, the largest in the lower pole measures 16 cm. No enhancing mass. No hydronephrosis. Normal enhancement pattern of the renal parenchyma. No gross cystic lesions in the right kidney. GASTROINTESTINAL TRACT: Abundant stool. No intestinal obstruction pattern. No ascites. ABDOMINAL WALL: Small fat-containing umbilical hernia. LYMPH NODES: No gross lymphadenopathy. VASCULAR: No aneurysm or dissection, abdominal aorta. OSSEOUS STRUCTURES: Multilevel thoracolumbar spondylosis without acute fracture or gross listhesis. MR/MR abdomen wo/w con IMPRESSION: Multiple simple cysts, hepatic, pancreas and left kidney. Overall stable. Associated Von Hippel-Lindau disease cannot be excluded Electronically signed by: Yandel Sinha MD 05/02/2025 09:55 AM EDT
[2025-05-02] MEDS: gadobutroL 10 ML VIAL IVPUSH (09:26)
== END 2025-05-02 08:29 | disposition home or self-care (01) ==
LOC: HO.MRI 08:28
PROVIDERS: Visit Provider Internal Medicine
DX: K86.2 Cyst of pancreas (principal); D49.0 Neoplasm of unspecified behavior of digestive system
CPT/HCPCS: 74183; A9585

== ENCOUNTER → 2025-05-02 08:41 | Outpatient (BNV) | payer MEDICARE, SELFPAY | PROVIDERS: Visit Provider Radiology Diagnostic Radiology | DX: K86.3 Pseudocyst of pancreas (principal) | CPT/HCPCS: 74183 ==

== ENCOUNTER 2025-10-10 05:59 | Outpatient (REF) | payer MEDICARE, SELFPAY ==
--- OUTSIDE RECORDS SUMMARY | 2025-09-04 04:30 | XMS_ITS ---
Author Organization [facility] Address [address] [place] [address] Care Team Providers Care Dust Collector Ore Crushing Name Role Phone DEVIN SOLANO M.D. Primary Care Provider Derick Briggs [phone] REASON FOR VISIT pancreatic cyst Encounters Encounter Location Date Provider Diagnosis [facility] [address] [place] [address] 09/04/2025 Derick Prakash Plan Of Treatment No Information Progress Notes * KATIE CAMERON ADOB: 3 (70 yo M)Acc No.[id number]:09/04/2025 Progress Notes Patient: KATIE SOMMER Provider: Sabrina Prakash MD :1955 A ge:70 Y S ex:Male Date:09/04/2025 Address:[address] [place] [address] [id number] Pcp:DEVIN SOLANO M.D. Subjective: * Chief Complaints: * P ancreatic cyst * The named appointment provid er may or may not be the originator of this progress note, and it is not deemed complete until electronically signed by the appointment provider. Sign off status: Pending * Provider: Sabrina Prakash MD Date: Generated for Hansa gillette/Abraham/Esausmitting on: 12/10/2024 06:03 AM EST
--- OUTSIDE RECORDS SUMMARY | 2025-09-19 08:00 | XMS_ITS ---
Author Organization [facility] Address [address] [place] [address] Care Team Providers Care Lacquer Sprayer Name Role Phone DEVIN SOLANO M.D. Primary Care Provider Derick Briggs [phone] Allergies No Known Allergies REASON FOR VISIT Patient presents today for pancreatic cyst Social History Tobacco Use: Social History Observation Description Date Details (start date - stop date) Former Smoker NA - NA Social History Tobacco Use: Social Info Question Answer Notes Tobacco Use/Smoking Patient is a former smoker When did you stop smoking? 50 Additional Details Category Social Info Options Details Miscellaneous: Marital status: Occupation: [employer]Retired. Retired [employer] as well Section Notes: Nionsmoker; no sig alcohol Vital Signs Temperature 96.9 degrees Fahrenheit 09/19/20 25 Blood pressure systolic 001 mm Hg 09/19/20 25 Blood pressure diastolic 01 mm Hg 025 Height 72 in 09/19/2025 Weight 218 lbs 09/19/2025 BMI 29.56 kg/m2 09/19/2025 Encounters Encounter Location Date Provider Diagnosis [facility] [address] [place] [address] 09/19/2025 Derick Prakash Encounter for screening for malignant neoplasm of colon Z12.11 ; Pancreatic cyst K86.2 and IPMN (intraductal papillary mucinous neoplasm) D49.0 Assessments Encounter Date Diagnosis (ICD Code) Assessment Notes Treatment Notes Treatment Clinical Notes Section Notes 09/19/2025 Encounter for screening for malignant neoplasm of colon (ICD-10 - Z12.11) Repeat colonoscopy in 2026 Overall, Katie appears quite well. He is not having any new or worrisome GI complaints. We did review his most recent MRI of the abdomen from this past April. Things appear to be very stable in regard to the pancreas and at this time I would simply continue to observe things. I do not think this requires any further intervention such as endoscopic ultrasound or any type of biopsy. Given the stable appearance on the MRI in April I did recommend a repeat MRI of the pancreas in 2026. He will also be due for a follow-up colonoscopy that year as well. If things remain stable he will see me in 2026 to set up those studies. I did advise him to certainly call me in the interim if he has any problems or questions I can be of assistance with. Katie was very comfortable with this plan. Thank you again for allowing me to participate in Katie's care. I shall continue to keep you advised of his progress. 09/19/2025 Pancreatic cyst (ICD-10 - K86.2) Overall, Katie appears quite well. He is not having any new or worrisome GI complaints. We did review his most recent MRI of the abdomen from this past April. Things appear to be very stable in regard to the pancreas and at this time I would simply continue to observe things. I do not think this requires any further intervention such as endoscopic ultrasound or any type of biopsy. Given the stable appearance on the MRI in April I did recommend a repeat MRI of the pancreas in 2026. He will also be due for a follow-up colonoscopy that year as well. If things remain stable he will see me in 2026 to set up those studies. I did advise him to certainly call me in the interim if he has any problems or questions I can be of assistance with. Katie was very comfortable with this plan. Thank you again for allowing me to participate in Katie's care. I shall continue to keep you advised of his progress. 09/19/2025 IPMN (intraductal papillary mucinous neoplasm) (ICD-10 - D49.0) Repeat MRI in 2026 Overall, Katie appears quite well. He is not having any new or worrisome GI complaints. We did review his most recent MRI of the abdomen from this past April. Things appear to be very stable in regard to the pancreas and at this time I would simply continue to observe things. I do not think this requires any further intervention such as endoscopic ultrasound or any type of biopsy. Given the stable appearance on the MRI in April I did recommend a repeat MRI of the pancreas in 2026. He will also be due for a follow-up colonoscopy that year as well. If things remain stable he will see me in 2026 to set up those studies. I did advise him to certainly call me in the interim if he has any problems or questions I can be of assistance with. Katie was very comfortable with this plan. Thank you again for allowing me to participate in Katie's care. I shall continue to keep you advised of his progress. Plan Of Treatment Treatment Notes Assessment Notes Encounter for screening for malignant ne oplasm of colon Repeat colonoscopy in 2026 IPMN (intraductal papillary mucinous juan plasm) Repeat MRI in 2026 Next Appt Details Follow Up: prn, Reason: History and Physical Notes * HPI (History of Present Illness) Category Sub-Category Detail Notes Category Not es incontinence I saw Katie in consultation today in regard to further evaluation of his pancreatic cysts consistent with IPMN, as well as his history of colon polyps and discussion of colorectal cancer screening. I last saw Katie in March 2022, at which time he underwent a follow-up screening colonoscopy which was negative. He underwent a follow-up MRI of his abdomen this past April which revealed his known cysts in the pancreas, kidney, and liver. The radiology report describes that the cysts all appear to be benign and are basically unchanged from the most recent study back in 2021. The pancreatic cysts in particular do not appear to be worrisome there is no sign of any pancreatic duct obstruction or biliary obstruction. Katie has been feeling very well. He enjoys a good appetite and denies any significant heartburn or dysphagia. His bowel movements have been regular and without any signs of bleeding. He denies any abdominal pain, signs of jaundice, or any unintentional weight loss. There is no known family history of colorectal cancer. Laboratory in September 2024 revealed normal chemistries and renal function, normal LFTs, and a normal CBC with a hemoglobin of 14.3 and normal MCV. Progress Notes * KATIE CAMERON ADOB: [birth year] (70 yo M)Acc No.[id number]:09/19/2025 Progress Notes Patient: KATIE SOMMER Provider: Sabrina Prakash MD :1955 A ge:70 Y S ex:Male Date:09/19/2025 Address:[id number] Pcp:DEVIN SOLANO M.D. Subjective: * Chief Complaints: * P atcaron presents today for pancreatic cyst * HPI: i ncontinence: I saw Katie in consultation today in regard to further evaluation of his pancreatic cysts consistent with IPMN, as well as his history of colon polyps and discussion of colorectal cancer screening. I last saw Katie in March 2022, at which time he underwent a follow-up screening colonoscopy which was negative. He underwent a follow-up MRI of his abdomen this past April which revealed his known cysts in the pancreas, kidney, and liver. The radiology report describes that the cysts all appear to be benign and are basically unchanged from the most recent study back in 2021. The pancreatic cysts in particular do not appear to be worrisome there is no sign of any pancreatic duct obstruction or biliary obstruction. Katie has been feeling very well. He enjoys a good appetite and denies any significant heartburn or dysphagia. His bowel movements have been regular and without any signs of bleeding. He denies any abdominal pain, signs of jaundice, or any unintentional weight loss. There is no known family history of colorectal cancer. Laboratory in September 2024 revealed normal chemistries and renal function, normal LFTs, and a normal CBC with a hemoglobin of 14.3 and normal MCV. * Medical History: Negative screening colonoscopy in 2005 Childhood asthma Denies NH,DM,CVA,Lung disease,renal disease Colonoscopy 04/2017 with a small tubular adenoma removed Pancreatic cyst seen on CT and MRI in 02/2019- a MRI in October 2019 was unchanged. Normal CA 19-9 level in 02/2019. MRI of the pancreas and abdomen was unchanged in February of 2021. Normal CA 19-9 level in February of 2021 MRI of the pancreas and abdomen in April 2025 showed unchanged cysts in the pancreas, liver, and kidney. Liver and renal cysts seen on his imaging studies Diverticulitis in January of 2019 treated with outpatient antibiotics Negative screening colonoscopy in March 2022 Medical History Verified * Surgical History: No Surgical History documented. Surgical History verified. * Hospitalization/Major Diagno stic Procedure: No Hospitalization Documented. Hospitalization Verified. * Family History: F ather: . M other: . F amily History Verified.. There is no family history of colorectal cancer or polyps, liver disease, or pancreatic disease,. * Social History: T obacco Use: T obacco Use/Smoking P atient is a f ormer smoker, W hen did you stop smoking??50. D rugs/Alcohol: A lcohol Screen P oints: 2, Interpretation: Negative. M iscellaneous: M arital status: . Occupation: [employer]Retired. 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 Social History Verified. N ionsmoker; no sig alcohol. * Medications: D iscontinuedFlonase Allergy Relief 50 MCG/ACT Suspension 1 spray in each nostril Nasally Once a day Medication List reviewed and reconciled with the patientDiscontinued Flonase Allergy Relief 50 MCG/ACT Suspension 1 spray in each nostril Nasally Once a day Medication List reviewed and reconciled with the patient * Allergies: N .K.D.A.yesAllergies Verified. Objective: * Vitals: W t:218lbs, Ht: 72 in, BMI:29.56Index, BP:001/01mm Hg, Temp:96.9F, Wt-k.88 kg. Assessment: * Assessment: 1. E ncounter for screening for malignant neoplasm of colon - Z12.11 (Primary) 2 . P ancreatic cyst - K86.2 3 . I PMN (intraductal papillary mucinous neoplasm) - D49.0 Overall, Katie appears quite well. He is not having any new or worrisome GI complaints. We did review his most recent MRI of the abdomen from this past April. Things appear to be very stable in regard to the pancreas and at this time I would simply continue to observe things. I do not think this requires any further intervention such as endoscopic ultrasound or any type of biopsy. Given the stable appearance on the MRI in April I did recommend a repeat MRI of the pancreas in 2026. He will also be due for a follow-up colonoscopy that year as well. If things remain stable he will see me in 2026 to set up those studies. I did advise him to certainly call me in the interim if he has any problems or questions I can be of assistance with. Katie was very comfortable with this plan. Thank you again for allowing me to participate in Katie's care. I shall continue to keep you advised of his progress. Plan: * Treatment: 2. I PMN (intraductal papillary mucinous neoplasm) Notes: Repeat MRI in 2026 * Preventive Medicine: Screenings: F all Risk Screening F all Risk Assessment: N o falls in the past year, S creening: N o falls in the past year, P casey of Care: N ot documented, no reason specified. * Follow Up: p rn Billing Information: * Procedure Codes: * The named appointment provid er may or may not be the originator of this progress note, and it is not deemed complete until electronically signed by the appointment provider. Sign off status: Pending * Provider: Sabrina Prakash MD Date: 11/19/2024 Generated for Hansa gillette/Abraham/Lesleyitting on: 12/10/2024 06:03 AM EST
--- OUTSIDE RECORDS SUMMARY | 2025-10-10 06:03 | XMS_ITS | Patient Health Record ---
Author Organization [facility] [place] Address [address] [facility] [address] [place] [address] Care Team Providers Care Well Service Derrick Worker Name Role Phone Ritesh Harmon MD Primary Care Provider Lenard Caicedo Unavailable [phone] Allergies No Known Allergies Reason For Referral No Information Medications Medication SIG (Take, Route, Fr equency, Duration) Notes Start Date End Date Status Nightsplint . . . AFO - L1930; Duration: . PRN Active Physical Therapy . . . 2-3x/week; Durat ion: 3-4 weeks 03/04/2022 Active Immunizations Vaccine Route Administration Date Status Comme nts Influenza Unknown 08/26/2021 Administered COVID-19 Moderna Vaccine Unknown 09/08/2021 Administered 1st 01/17/2021 2nd 02/17/2021 Social History Tobacco Use: Social History Observation [...] Status Risk Notes Problem Plantar fascial fibromatosis (13774169) Plantar fascial fibromatosis (M72.2) Active confirmed Plan Of Treatment Pending Test Test Name Order Date ,W4594-[id number] TENDON SHEATH/LIGAMENT 1 11/26/202052562,[id number] TENDON SHEATH/LIGAMENT 1 12/25/202014001,[id number] TENDON SHEATH/LIGAMENT 0 01/08/202299300,X4325-FHT TENDON SHEATH/LIGAMENT 0 02/03/2022 Insurance Providers Payer Name Payer Address Payer Phone Subscriber Number Group Number Insured Name Patient Relationship to Insured Coverage Start Date Coverage End Date [employer] [address] [place] [address] [id number] Michael Valentin Self - patient is the insured [facility] [address] [place] [address] [id number] Michael Valentin Self - patient is the insured Medical (General) History Medical History History ICD Code Diverticulosis Surgical History Surgery Date(Month/Year)
--- OUTSIDE RECORDS SUMMARY | 2025-10-10 06:03 | XMS_ITS | Patient Health Record ---
Author Organization [facility] Address [address] [place] [address] Care Team Providers Care Track Worker Name Role Phone DEVIN SOLANO M.D. Primary Care Provider Derick Briggs [phone] Allergies No Known Allergies Results Component Value Reference Range Notes MR abdomen wo/w con Reviewed date:09/19/2025 01:08:58 PM Interpretation: Performing Lab: Notes/Report: [address] [address] Magnetic Resonance Report Signed Patient: Katie Valentin MR#: [id number] : 1955 Acct:[id number] Age/Sex: 69 / M ADM Date: 05/02/25 Loc: HO.MRI Attending Dr: Derick Prakash MD Ordering Physician: Derick Prakash MD Date of Service: 05/02/25 Procedure(s): MR abdomen wo/w con Accession Number(s): [id number] cc: Physician,Unknown ; Derick Prakash MD EXAMINATION: MR ABDOMEN WITHOUT AND WITH CONTRAST CLINICAL INFORMATION: Pancreatic cyst. COMPARISON: MRI dated March 12, 2022. TECHNIQUE: MR abdomen was performed without and with use of 10 mL intravenous Gadavist gadolinium contrast. Postcontrast images are performed in multiphase dynamic sequences. Imaging was performed in 3 planes. No reported immediate complications. FINDINGS: Limited by patient's motion artifact. LUNG BASES: No enhancing mass. LIVER, GALLBLADDER, AND BILIARY TREE: Liver measures 16 cm. There are multifocal, well-defined, lobulated, round and thin septated nonenhancing fluid signal characteristic lesions throughout the erythema, the largest in the left hepatic dome measures 4 cm. Main portal veins, hepatic veins and intrahepatic portion of the IVC are patent. No intrahepatic biliary ductal dilatation. Gallbladder is fluid-filled without pericholecystic fluid collection or gallbladder wall thickening. Common bile duct measures 5 mm. No intraluminal signal abnormality. PANCREAS: There are multifocal, well-defined, round, ovoid shaped nonenhancing fluid signal characteristic lesions, the largest in the uncinate process measures 1 cm. No main pancreatic ductal dilatation. No peripancreatic fluid collection. SPLEEN: 11 cm. ADRENAL GLANDS: No nodular lesions. KIDNEYS AND URETERS: There are multifocal, different sizes, thin septated nonenhancing fluid signal characteristic lesions in the left kidney, the largest in the lower pole measures 16 cm. No enhancing mass. No hydronephrosis. Normal enhancement pattern of the renal parenchyma. No gross cystic lesions in the right kidney. GASTROINTESTINAL TRACT: Abundant stool. No intestinal obstruction pattern. No ascites. ABDOMINAL WALL: Small fat-containing umbilical hernia. LYMPH NODES: No gross lymphadenopathy. VASCULAR: No aneurysm or dissection, abdominal aorta. OSSEOUS STRUCTURES: Multilevel thoracolumbar spondylosis without acute fracture or gross listhesis. MR/MR abdomen wo/w con IMPRESSION: Multiple simple cysts, hepatic, pancreas and left kidney. Overall stable. 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 50 Additional Details Category Social Info Options Details Miscellaneous: Marital status: Occupation: [employer]Retired. Retired [employer] as well Section Notes: Nionsmoker; no sig alcohol Nionsmoker; no sig alcohol Nionsmoker; no sig alcohol Nionsmoker; no sig alcohol Nionsmoker; no sig alcohol Nionsmoker; no sig alcohol Nionsmoker; no sig alcohol Nionsmoker; no sig alcohol Problems Problem Type SNOMED Code ICD Code Onset Dates Problem Status W/U Status Risk Notes Problem Diverticulitis of colon (440531400) Diverticulitis of large intestine without perforation or abscess without bleeding (K57.32) Active confirmed Problem Screening for malignant neoplasm of colon (185446085) Encounter for screening for malignant neoplasm of colon (Z12.11) Active confirmed Problem History of adenomatous polyp of colon (400070716) History of adenomatous polyp of colon (Z86.010) Active confirmed Problem Screening for malignant neoplasm of rectum (718690438) Encounter for screening for malignant neoplasm of rectum (Z12.12) Active confirmed Problem Preprocedural examination (794761047056481) Preprocedural examination (Z01.818) Active confirmed Problem History of polyp of colon (situation) (638799149) History of colon polyps (Z86.010) Active confirmed Problem Pancreatic cyst (66160286) Pancreatic cyst (K86.2) Active confirmed Problem Diverticulosis of colon (662535911) Diverticulosis of colon (K57.30) Active confirmed Problem Disorder of pancreas (9959807) Pancreatic lesion (K86.9) Active confirmed Problem Neoplasm of digestive system (783674088) IPMN (intraductal papillary mucinous neoplasm) (D49.0) Active confirmed Vital Signs Temperature 96.9 degrees Fahrenheit 09/19/2025 Blood pressure diastolic 01 mm Hg 09/19/2025 Height 72 in 09/19/2025 Blood pressure systolic 001 mm Hg 09/19/2025 Weight 218 lbs 09/19/2025 BMI 29.56 kg/m2 09/19/2025 Encounters Encounter Location Date Provider Diagnosis [facility] [address] [place] [address] 09/19/2025 Derick Prakash Encounter for screening for malignant neoplasm of colon Z12.11 ; Pancreatic cyst K86.2 and IPMN (intraductal papillary mucinous neoplasm) D49.0 [facility] [address] [place] [address] 04/12/2025 Derick Prakash Pancreatic cyst K86. 2 [...] to keep you advised of his progress. 04/12/2025 Pancreatic cyst (ICD-10 - K86.2) 04/12/2025 IPMN (intraductal papillary mucinous neoplasm) (ICD-10 - D49.0) 09/19/2025 Pancreatic cyst (ICD-10 - K86.2) Overall, [...] advised of his progress. Plan Of Treatment Pending Test Test Name Order Date BUN 07/26/2019 BUN 10/24/2020 BUN 03/03/2022 BUN 02/15/2019 BUN 04/12/2025 CREATININE 02/15/2019 CREATININE 03/03/2022 CREATININE 10/24/2020 CREATININE 07/26/2019 CA 19-9 10/24/2020 CA 19-9 03/03/2022 CA 19-9 02/15/2019 CA 19-9 04/12/2025 MRI ABD W&WO CONTRAST 02/15/2019 MRI ABD W&WO CONTRAST 04/12/2025 MRI ABD W&WO CONTRAST 07/26/2019 MRI ABD W&WO CONTRAST 03/03/2022 MRI ABD W&WO CONTRAST 10/24/2020 Creatinine 04/12/2025 Future Test Test Name Order Date COLONOSCOPY 11/20/2016 COLONOSCOPY 03/03/2022 Insurance Providers Payer Name Payer Address Payer Phone Subscriber Number Group Number Insured Name Patient Relationship to Insured Coverage Start Date Coverage End Date MEDICARE OF [place] [address] [facility] [address] [phone] [id number] KATIE VALENTIN Self - patient is the insured [employer] ATT[employer] CLAIMS [address] [place] [address] [id number] KATIE VALENTIN Self - patient is the insured Medical (General) History Medical History History ICD Code Negative screening colonoscopy in 2005 Childhood asthma Denies SD,DM,CVA,Lung disease,renal dise ase Colonoscopy 04/2017 with a small tubular adenoma removed Pancreatic cyst seen on CT a nd MRI in 02/2019- a MRI in October [...] with outpatient antibiotics Negative screening colonoscopy in April 03 Surgical History Surgery Date(Month/Year)
[2025-10-10 06:18] LABS: MANUAL DIFF FLAG NO
[2025-10-10 07:17] LABS: Hematocrit 43.6 % (42.0-52.0); Hemoglobin 14.3 g/dl (14.0-18.0); Imm Gran Abs Auto 0.03 X10*3/uL (0.00-0.03); Imm Gran Pct Auto 0.5 % (0.0-0.4); Lymphocytes Absolute Auto 1.5 X10*3/uL (1.2-4.9); Mean Corpuscular HGB Conc 32.8 g/dl (31.0-36.0); Mean Corpuscular Hemoglobin 31.4 pg (27.0-33.0); Mean Corpuscular Volume 95.6 fL (80.0-98.0); NRBC Abs Auto 0.000 X10*3/uL (0.0-0.012); NRBC Pct Auto 0.0 /100WBC (0.0-0.2); Platelet Count 170 X10*3/uL (160-400); Red Blood Count 4.56 X10*6/uL (4.60-5.80); White Blood Count 5.9 X10*3/uL (4.8-10.8)
[2025-10-10 08:05] LABS: Alanine Aminotransferase 25 U/L (0-40); Albumin Level 4.3 g/dL (3.5-5.0); Alkaline Phosphatase 64 U/L (39-117); Anion Gap 12 (12-20); Aspartate Amino Transferase 25 U/L (5-37); Blood Urea Nitrogen 21 mg/dL (9-16); Calcium 9.1 mg/dL (8.4-10.2); Carbon Dioxide 26 mmol/L (22-29); Chloride 107 mmol/L (96-108); Cholesterol 170 mg/dL (<200); Estimated Glomerular Filt Rate > 60; HDL Cholesterol 48 mg/dL (>40); Potassium 4.6 mmol/L (3.3-5.1); Sodium 140 mmol/L (135-145); Total Protein 6.7 g/dL (6.5-8.0); Triglycerides 173 mg/dL (<150)
[2025-10-10 08:20] LABS: PSA,Total (Free>4and<10) 0.40 ng/mL (0.00-4.00)
[2025-10-10 08:23] LABS: HBS Num1 19.46 mIU/mL (0-7.99); HBc Num1 0.07 S/CO (0.00-0.79); HBsAGNum1 0.35 S/CO (0.00-0.99); HIV Num 1 0.16 S/CO (0.00-0.99); Hepatitis A Antibody IgM 0.19 Index (0-0.79); Hepatitis B Surface Antigen Negative (Negative); Syphilis Screen Nonreactive (Nonreactive); ~HepC Num1 0.09 S/CO (0.00-0.79); ~Hepatitis A Antibody IgM Nonreactive (Nonreactive); ~Hepatitis B Surface Antibody REACTIVE (Nonreactive); ~Hepatitis C Antibody Nonreactive (Nonreactive)
== END 2025-10-10 06:00 | disposition home or self-care (01) ==
LOC: HO.LAB 05:59
PROVIDERS: PCP Student in an Organized Health Care Education/Training Program; Visit Provider Student in an Organized Health Care Education/Training Program
DX: Z12.5 Encounter for screening for malignant neoplasm of prostate (principal); Z11.4 Encounter for screening for human immunodeficiency virus [HIV]; Z13.29 Encounter for screening for other suspected endocrine disorder; Z13.1 Encounter for screening for diabetes mellitus; Z13.6 Encounter for screening for cardiovascular disorders; Z13.21 Encounter for screening for nutritional disorder; Z76.89 Persons encountering health services in other specified circumstances
CPT/HCPCS: 36415; 80053; 80061; 82306; 83036; 84153; 84443; 85025; 86704; 86706; 86709; 86780; 86803; 87340; 87389

== ENCOUNTER 2025-11-05 10:24 | Outpatient (AMB) | payer MEDICARE, SELFPAY ==
--- OUTSIDE RECORDS SUMMARY | 2025-09-04 04:30 | XMS_ITS ---
Author Organization [facility] Address [address] [place] [address] Care Team Providers Care Stockroom Inventory Clerk Name Role Phone DEVIN SOLANO M.D. Primary Care Provider Derick Briggs [phone] REASON FOR VISIT pancreatic cyst Encounters Encounter Location Date Provider Diagnosis [facility] [address] [place] [address] 09/04/2025 Derick Prakash Plan Of Treatment No Information Progress Notes * KATIE CAMERON ADOB: 3 (70 yo M)Acc No.[id number]:09/04/2025 Progress Notes Patient: KATIE SOMMER Provider: Sabrina Prakash MD :1955 A ge:70 Y S ex:Male Date:09/04/2025 Address:[address] [place] [address] [id number] Pcp:DEVIN SOLANO M.D. Subjective: * Chief Complaints: * P ancreatic cyst * The named appointment provid er may or may not be the originator of this progress note, and it is not deemed complete until electronically signed by the appointment provider. Sign off status: Pending * Provider: Sabrina Prakash MD Date: 1 Generated for Hansa gillette/Abraham/eTannesmitting on: 01/06/2025 12:41 PM EST
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
[2025-11-05 10:32] VITALS: BP 160/94; PULSE 93; RESP 16; TEMP 36.2; O2SAT 97; BMI 29.3
--- OUTSIDE RECORDS SUMMARY | 2025-11-05 12:41 | XMS_ITS | Patient Health Record ---
Author Organization [facility] Address [address] [place] [address] Care Team Providers Care Computer System Specialist Name Role Phone DEVIN SOLANO M.D. Primary Care Provider Derick Briggs [phone] Allergies No Known Allergies Results Component Value Reference Range Notes MR abdomen wo/w con Reviewed date:09/19/2025 01:08:58 PM Interpretation: Performing Lab: Notes/Report: [address] [address] Magnetic Resonance Report Signed Patient: Katie Valentin MR#: [id number] : 1955 Acct:[id number] Age/Sex: 69 / M ADM Date: 05/02/25 Loc: HO.MRI Attending Dr: Derick Prakash MD Ordering Physician: Derick Prakash MD Date of Service: 05/02/25 Procedure(s): MR abdomen wo/w con Accession Number(s): [id number] cc: Physician,Unknown ; Derick Prakash MD EXAMINATION: [...] 05/02/25 0955 DD/ 0841 TD/TT: 05/02/25 0908 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 [employer]ired [employer] as well Section Notes: Nionsmoker; no sig alcohol Nionsmoker; no sig alcohol Nionsmoker; no sig alcohol Nionsmoker; no sig alcohol Nionsmoker; no sig alcohol Nionsmoker; no sig alcohol Nionsmoker; no sig alcohol Nionsmoker; no sig alcohol Problems Problem Type SNOMED Code ICD Code Onset Dates Problem Status W/U Status Risk Notes Problem Diverticulitis of colon (234508693) Diverticulitis of large intestine without perforation or abscess without bleeding (K57.32) Active confirmed Problem Screening for malignant neoplasm of colon (654948006) Encounter for screening for malignant neoplasm of colon (Z12.11) Active confirmed Problem History of adenomatous polyp of colon (159136255) History of adenomatous polyp of colon (Z86.010) Active confirmed Problem Screening for malignant neoplasm of rectum (988004430) Encounter for screening for malignant neoplasm of rectum (Z12.12) Active confirmed Problem Preprocedural examination (315472164634387) Preprocedural examination (Z01.818) Active confirmed Problem History of polyp of colon (situation) (865803992) History of colon polyps (Z86.010) Active confirmed Problem Pancreatic cyst (29059054) Pancreatic cyst (K86.2) Active confirmed Problem Diverticulosis of colon (203097996) Diverticulosis of colon (K57.30) Active confirmed Problem Disorder of pancreas (5560637) Pancreatic lesion (K86.9) Active confirmed Problem Neoplasm of digestive system (699026631) IPMN (intraductal papillary mucinous neoplasm) (D49.0) Active confirmed Vital Signs Temperature 96.9 degrees Fahrenheit 09/19/2025 Blood pressure diastolic 01 mm Hg 09/19/2025 Height 72 in 09/19/2025 Blood pressure systolic 001 mm Hg 09/19/2025 Weight 218 lbs 09/19/2025 BMI 29.56 kg/m2 09/19/2025 Encounters Encounter Location Date Provider Diagnosis [facility] [address] [place] [address] 09/19/2025 Derick Prakash Encounter for screening for malignant neoplasm of colon Z12.11 ; IPMN (intraductal papillary mucinous neoplasm) D49.0 and Pancreatic cyst K86.2 [facility] [address] [place] [address] 04/12/2025 Derick Prakash Pancreatic cyst K86. 2 [...] Date MEDICARE OF [place] [address] [place] [id number] [phone] [id number] KATIE VALENTIN Self - patient is the insured [employer] CLAIMS [address] [place] [address] [id number] KATIE VALENTIN Self - patient is the insured Medical (General) History Medical History History ICD Code Negative screening colonoscopy in 2005 Childhood asthma Denies DE,DM,CVA,Lung disease,renal dise ase Colonoscopy 04/2017 with a [...]
== END 2025-11-05 10:50 | disposition home or self-care (01) ==
LOC: HO.HMCHD 10:24
PROVIDERS: Visit Provider Student in an Organized Health Care Education/Training Program
DX: I10 Essential (primary) hypertension (principal); E55.9 Vitamin D deficiency, unspecified; E78.2 Mixed hyperlipidemia; Z00.00 Encounter for general adult medical examination without abnormal findings

== ENCOUNTER → 2025-11-05 10:24 | Outpatient (BNVA) | payer MEDICARE, SELFPAY | PROVIDERS: Visit Provider Student in an Organized Health Care Education/Training Program | DX: Z00.00 Encounter for general adult medical examination without abnormal findings (principal); I10 Essential (primary) hypertension; R63.5 Abnormal weight gain; E78.2 Mixed hyperlipidemia; E55.9 Vitamin D deficiency, unspecified; Z13.31 Encounter for screening for depression; Z13.39 Encounter for screening examination for other mental health and behavioral disorders | CPT/HCPCS: 96127; 99202 ==